=== PATIENT | male | born 1995 | race African-American/Black ===

== ENCOUNTER 2017-02-23 19:08 | Emergency (ER) | payer OTHER ==
[~2017-02-23] VITALS: Ht 170.2 cm; Wt 107.1 kg
[2017-02-23 21:38] VITALS: BP 164/87
== END 2017-02-23 21:39 | disposition home or self-care (01) ==
LOC: M ED 19:08
DX: F32.9 Major depressive disorder, single episode, unspecified (principal); Z72.0 Tobacco use